=== PATIENT | male | born 1965 | race Caucasian/White ===

== ENCOUNTER 2025-09-09 08:50 | Outpatient (RCR) | payer OTHER, SELFPAY | END 2025-09-09 23:59 | disposition home or self-care (01) | LOC: ROT 08:50 | PROVIDERS: ATTENDING PHYSICIAN Physician Assistant; FAMILY PHYSICIAN Hospitalist | DX: Z47.89 Encounter for other orthopedic aftercare (principal); Z73.6 Limitation of activities due to disability; M25.541 Pain in joints of right hand | CPT/HCPCS: 97760 ==